=== PATIENT | male | born 1990 | race African-American/Black ===

== ENCOUNTER 2020-05-21 09:05 | Emergency (ER) | payer MEDICAID ==
[~2020-05-21] VITALS: Ht 177.8 cm; Wt 75.0 kg
[2020-05-21 09:10] VITALS: BP 145/89
[2020-05-21] MEDS ORDERED: ACETAMINOPHEN 325MG TABLET PO ONE (09:45)
[2020-05-21] MEDS ORDERED: KETOROLAC 30MG/ML VIAL IM ONE (10:15)
== END 2020-05-21 10:35 | disposition home or self-care (01) ==
LOC: ER 09:05
DX: R51.9 Headache, unspecified (principal); M26.609 Unspecified temporomandibular joint disorder, unspecified side; H53.8 Other visual disturbances
CPT/HCPCS: 99284